=== PATIENT | female | born 2000 | race Caucasian/White ===

== ENCOUNTER 2018-03-07 15:02 | Inpatient (IN) ==
[2018-03-07] MEDS: LACTATED RINGERS 1,000 ML IV SCH (15:37)
[2018-03-07] MEDS ORDERED: ONDANSETRON 4 MG/2 ML VIAL IV PRN (15:47)
[2018-03-07] MEDS ORDERED: DINOPROSTONE VAG GEL 10 MG SYRINGE VAG ONE (15:54)
[2018-03-07 16:28] LABS: Basophils % 0.2 % (0.0-0.8); Eosinophils % 0.3 % (0.00-10.9); Hematocrit 36.9 VOL% (35.7-47.0); Hemoglobin 12.2 GM/DL (12.0-16.0); Immature Granulocytes % 1.4 %; Immature Granulocytes Absolute 0.16 #; Lymphocytes # 1.6 10*3/uL (1.4-4.0); Lymphocytes % 14.1 % (21.3-54.2); Mean Corpuscular HGB Conc 33.1 GM/DL (32-36); Mean Corpuscular Hemoglobin 30 PG (27-34); Mean Corpuscular Volume 91.6 FL (87-102); Monocytes # 0.8 10*3/uL (0.11-0.8); Monocytes % 7.1 % (1.7-12.7); Neutrophils # 8.8 10*3/uL (1.4-7.4); Neutrophils % 76.9 % (38.7-73.9); Platelet Count 143 T/CUMM (130-400); Red Blood Count 4.03 MC/CUMM (3.8-5.5); Red Cell Distribution Width 13.2 % (9.3-17.3); White Blood Count 11.5 T/CUMM (4-12)
[2018-03-07 17:04] LABS: Alanine Aminotransferase 10 U/L (13-56); Albumin 2.3 G/DL (3.4-5.0); Alkaline Phosphatase 183 U/L (45-117); Aspartate Amino Transferase 12 U/L (0-37); Bilirubin,Total < 0.39 MG/DL (0.2-1.0); Blood Urea Nitrogen 6 MG/DL (7-18); Calcium 8.9 MG/DL (8.5-10.1); Glucose 103 MG/DL (74-106); Osmolality,Calculated 276.4 MOS/KG (273-304); Potassium 4.1 MMOL/L (3.5-5.1); Sodium 140 MMOL/L (136-145); Total Protein 6.4 G/DL (6.4-8.3)
[2018-03-08] MEDS ORDERED: OXYTOCIN/LR 20 UNIT/1,000 ML BAG IV SCH (02:00)
[2018-03-08] MEDS ORDERED: BUTORPHANOL 2 MG/ML VIAL ONE (04:20)
[2018-03-08] MEDS ORDERED: DINOPROSTONE VAG GEL 10 MG SYRINGE VAG ONE (04:46)
[2018-03-08] MEDS: LACTATED RINGERS 1,000 ML IV SCH ×2 (09:15→16:18)
[2018-03-08] MEDS ORDERED: BUTORPHANOL 2 MG/ML VIAL IV PRN (12:44)
[2018-03-08] MEDS ORDERED: BUTORPHANOL 1 MG/ML VIAL IV PRN (12:44)
[2018-03-08] MEDS ORDERED: CITRIC ACID/SODIUM CITRATE 30 ML UDCUP PO ONE (14:48)
[2018-03-08] MEDS ORDERED: hydrOXYzine HCL 25 MG/1 ML VIAL IM PRN (14:48)
[2018-03-08] MEDS ORDERED: FAMOTIDINE 20 MG/2 ML VIAL IV ONE (14:48)
[2018-03-08] MEDS ORDERED: PROMETHAZINE 25 MG/1 ML VIAL IM ONE (14:48)
[2018-03-08] MEDS ORDERED: ePHEDrine 50 MG/ML AMP IV PRN (14:48)
[2018-03-08] MEDS ORDERED: ONDANSETRON 4 MG/2 ML VIAL IV ONE (14:48)
[2018-03-08] MEDS ORDERED: diphenhydrAMINE 50 MG/1 ML VIAL IV PRN ×2 (14:48)
[2018-03-08] MEDS ORDERED: fentaNYL 2 MCG/ROPIV 0.2% EPID 150 ML EPIDURAL SCH (15:00)
[2018-03-08] MEDS ORDERED: ceFAZolin 3,000 MG in SYRINGE 1 EACH IV ONE (16:51)
[2018-03-08] MEDS ORDERED: OXYTOCIN/LR 30 UNIT/1,000 ML BAG IV ONE (16:59)
[2018-03-08] MEDS ORDERED: OXYTOCIN 10 UNIT/ML VIAL IM ONE (16:59)
[2018-03-08 17:00] LABS: Apearance,Urine CLEAR (Clear); Bacteria,Urine Occasional /HPF (Few); Bilirubin,Urine Negative (Negative); Blood, Urine Moderate mg/dL (Negative); Glucose,Urine (UA) Negative (Negative); Ketones,Urine Negative (Negative); Mucus,Urine Occasional /LPF (Occasional); Nitrite,Urine Negative (Negative); Protein,Urine Negative; RBC,Urine 2 /HPF (0-4); Urine Color Yellow (Yellow); Urine Urobilinogen < 2.0 EU/DL (0.2-1.0)
[2018-03-08 18:13] LABS: Cord Venous Blood HCO3 19.5 MMOL/L; Cord Venous Blood PCO2 55.6 MMHG; Cord Venous Blood PO2 23.4
[2018-03-08 18:15] LABS: Cord Arterial Blood HCO3 23.8 MMOL/L
[2018-03-08] MEDS ORDERED: fentaNYL 100 MCG/2 ML VIAL ONE (18:25)
[2018-03-08] MEDS ORDERED: LIDOCAINE MPF 2% /EPI 20 ML VIAL ONE (18:26)
[2018-03-08] MEDS ORDERED: OXYTOCIN/LR 20 UNIT/1,000 ML BAG IV ONE (18:34)
[2018-03-08] MEDS ORDERED: SIMETHICONE CHEW 80 MG TABLET PO PRN (18:34)
[2018-03-08] MEDS ORDERED: ONDANSETRON 4 MG/2 ML VIAL IV PRN (18:34)
[2018-03-08] MEDS ORDERED: ACETAMINOPHEN 325 MG TABLET PO PRN (18:34)
[2018-03-08] MEDS ORDERED: RHO(D) IMMUNE GLOBULIN 300 MCG SYRINGE IM ONE (18:34)
[2018-03-08] MEDS: IBUPROFEN 800 MG TABLET PO PRN (19:42)
[2018-03-08] MEDS: DOCUSATE SODIUM 100 MG CAPSULE PO SCH (23:05)
[2018-03-09] MEDS: ceFAZolin 1,000 MG in SYRINGE 1 EACH IV SCH ×2 (02:12→11:39)
[2018-03-09 04:13] LABS: Basophils % 0.2 % (0.0-0.8); Eosinophils % 0.2 % (0.00-10.9); Hematocrit 33.5 VOL% (35.7-47.0); Hemoglobin 11.1 GM/DL (12.0-16.0); Immature Granulocytes % 0.7 %; Immature Granulocytes Absolute 0.08 #; Lymphocytes # 1.2 10*3/uL (1.4-4.0); Lymphocytes % 10.2 % (21.3-54.2); Mean Corpuscular HGB Conc 33.1 GM/DL (32-36); Mean Corpuscular Hemoglobin 31 PG (27-34); Mean Corpuscular Volume 92.3 FL (87-102); Mean Platelet Volume 13.3 FL (9.6-12.0); Monocytes % 8.9 % (1.7-12.7); Neutrophils # 9.3 10*3/uL (1.4-7.4); Neutrophils % 79.8 % (38.7-73.9); Platelet Count 98 T/CUMM (130-400); Red Blood Count 3.63 MC/CUMM (3.8-5.5); Red Cell Distribution Width 13.2 % (9.3-17.3); White Blood Count 11.6 T/CUMM (4-12)
[2018-03-09 04:40] LABS: Band Neutrophils 6 % (0-10); Lymphocytes 2 % (20-55); Segmented Neutrophils 86 % (50-85)
[2018-03-09 04:41] LABS: Platelet Estimate Decreased; Total Cells Counted 100
[2018-03-09] MEDS: DOCUSATE SODIUM 100 MG CAPSULE PO SCH ×2 (08:24→21:12)
[2018-03-09] MEDS: MAGNESIUM HYDROXIDE SUSP 30 ML UDCUP PO PRN (08:24)
[2018-03-09] MEDS: IBUPROFEN 800 MG TABLET PO PRN (08:24)
[2018-03-09] MEDS: MULTIVITAMIN (PRENATAL) TABLET PO SCH (08:24)
[2018-03-09] MEDS: oxyCODONE/ACETAMINOPHEN 5-325 MG TABLET PO PRN ×3 (08:30→21:12)
[2018-03-09 12:30] LABS: Basophils % 0.2 % (0.0-0.8); Eosinophils % 0.4 % (0.00-10.9); Hematocrit 33.5 VOL% (35.7-47.0); Immature Granulocytes % 0.8 %; Immature Granulocytes Absolute 0.08 #; Lymphocytes # 1.4 10*3/uL (1.4-4.0); Lymphocytes % 13.1 % (21.3-54.2); Mean Corpuscular HGB Conc 32.8 GM/DL (32-36); Mean Corpuscular Hemoglobin 31 PG (27-34); Mean Corpuscular Volume 93.1 FL (87-102); Neutrophils # 7.8 10*3/uL (1.4-7.4); Neutrophils % 75.5 % (38.7-73.9); Red Cell Distribution Width 13.2 % (9.3-17.3); White Blood Count 10.3 T/CUMM (4-12)
[2018-03-09 12:33] LABS: Platelet Count 90 T/CUMM (130-400)
[2018-03-09 12:46] LABS: Giant Platelets Few; Hypochromasia 1+; Platelet Estimate Decreased
[2018-03-10] MEDS: oxyCODONE/ACETAMINOPHEN 5-325 MG TABLET PO PRN ×2 (04:02→09:52)
[2018-03-10 07:15] VITALS: BP 146/78
[2018-03-10] MEDS: IBUPROFEN 800 MG TABLET PO PRN (09:52)
[2018-03-10] MEDS: MULTIVITAMIN (PRENATAL) TABLET PO SCH (09:52)
[2018-03-10] MEDS: MAGNESIUM HYDROXIDE SUSP 30 ML UDCUP PO PRN (09:52)
[2018-03-10] MEDS: LACTATED RINGERS 1,000 ML IV SCH ×3 (10:31→10:32)
[2018-03-10] MEDS: DOCUSATE SODIUM 100 MG CAPSULE PO SCH (10:32)
== END 2018-03-10 14:20 | disposition home or self-care (01) | DRG 540 ==
LOC: N.LDOUT 15:02 → N.LD 15:08 → N.OB 03-08 20:30
PROVIDERS: ADMIT Obstetrics & Gynecology; ATTEND Obstetrics & Gynecology
PROC: LDCSECT (ICD-10-PCS; 2018-03-08 17:00)